=== PATIENT | female | born 1985 | race Caucasian/White ===

== ENCOUNTER 2017-04-05 00:51 | Emergency (ER) | payer BC ==
[~2017-04-05] VITALS: Ht 170.2 cm; Wt 56.6 kg
[2017-04-05 01:52] VITALS: BP 145/95
== END 2017-04-05 01:52 | disposition home or self-care (01) ==
LOC: EME 00:51
DX: S03.03XA Dislocation of jaw, bilateral, initial encounter (principal); X58.XXXA Exposure to other specified factors, initial encounter; Y93.89 Activity, other specified
CPT/HCPCS: 99281; 99283